=== PATIENT | male | born 1955 | race African-American/Black ===

== ENCOUNTER 2017-06-03 13:34 | Inpatient (IN) | payer OTHER ==
[2017-06-03 15:22] VITALS: BMI 26.3
--- NOTE | 2017-06-03 17:19 | HP ---
CIWA Score - CIWA Score Nausea/Vomitin Muscle Tremors: 5 Anxiety: 3 Agitation: 3 Paroxysmal Sweats: 3 Orientation: 0-Oriented Tacttile Disturbances: 0-None Auditory Disturbances: 0-None Visual Disturbances: 0-None Headache: 0-None Present CIWA-Ar Total Score: 17 Admission ROS BHS - HPI Chief Complaint: "I need help for my Alcohol use, I need to overcome that." Patient is here to Detox from Alcohol. Allergies/Adverse Reactions: Allergies Allergy/AdvReac Type Severity Reaction Status Date / Time pork derived (porcine) Allergy Severe Verified 06/03/17 16:45 No Known Drug Allergies Allergy Verified 06/03/17 16:45 History of Present Illness: Patient 61 YO male here to Detox from Alcohol. This is patient's first Detox admission at [facility]. Patient had a detox admission at [facility] in 2016. Longest Period of sobriety: approx. 1 year (1992). Exam Limitations: No Limitations - Ebola screening Have you traveled outside of the country in the last 21 days: No (N) Have you had contact with anyone from an Ebola affected area: No Have you been sick,other than usual withdrawal symptoms: No Do you have a fever: No - Review of Systems Constitutional: Chills, Diaphoresis, Fever, Loss of Appetite, Malaise, Night Sweats, Changes in sleep, Unintentional Wgt. Loss (Lost approx. 15 lbs. over last Six months.) EENT: reports: Tearing, Nose Congestion, Sinus Pressure Respiratory: reports: Shortness of Breath, Productive cough Cardiac: reports: No Symptoms Reported GI: reports: Nausea, Poor Appetite, Vomiting : reports: No Symptoms Reported Musculoskeletal: reports: No Symptoms Reported Integumentary: reports: No Symptoms Reported Neuro: reports: Tremors Endocrine: reports: No Symptoms Reported Hematology: reports: No Symptoms Reported Psychiatric: reports: Judgement Intact, Mood/Affect Appropiate, Orientated x3, Anxious Other Systems: Reviewed and Negative Patient History - Patient Medical History Hx Anemia: No Hx Asthma: No Hx Chronic Obstructive Pulmonary Disease (COPD): No Hx Cancer: No Hx Cardiac Disorders: No Hx Congestive Heart Failure: No Hx Hypertension: Yes (on meds.) Hx Hypercholesterolemia: Yes (On med.) Hx Pacemaker: No HX Cerebrovascular Accident: No Hx Seizures: No Hx Dementia: No Hx Diabetes: No Hx Gastrointestinal Disorders: No Hx Liver Disease: No Hx Genitourinary Disorders: No Hx Sexually Transmitted Disorders: No Hx Renal Disease (ESRD): No Hx Thyroid Disease: No Hx Human Immunodeficiency Virus (HIV): No (Last Tested: approx. 1 year ago.) Hx Hepatitis C: No (Negative History.) Hx Depression: No Hx Suicide Attempt: No (PATIENT DENIES CURRENT SI / HI.) Hx Bipolar Disorder: No Hx Schizophrenia: No Other Medical History: DENIES. - Patient Surgical History Past Surgical History: Yes Hx Orthopedic Surgery: Yes (Right ankle sx, Louis Placed after.) Other Surgical History: Left eye prothesis Anesthesia Reaction: No - PPD History Documented Results: Positive w/o proof (Completed Course of Antibiotic Treatment , 1988.) Implanted On Prior R Admission?: No PPD to be Administered?: No - Reproductive History Patient is a Female of Child Bearing Age (11 -55 yrs old): No (PATIRNT IS MALE.) - Smoking Cessation Smoking history: Current every day smoker Have you smoked in the past 12 months: Yes Aproximately how many cigarettes per day: 7 Cigars Per Day: 0 Hx Chewing Tobacco Use: No Initiated information on smoking cessation: Yes 'Breaking Loose' booklet given: 06/03/17 (GIVEN TO PATIENT.) - Substance & Tx. History Hx Alcohol Use: Yes Hx Substance Use: Yes Substance Use Type: Alcohol Hx Substance Use Treatment: Yes (Detox at [facility], 2016.) - Substances Abused Alcohol Route: Oral Frequency: Daily Amount used: 1 and 1/2 pints vodka Age of first use: 17 Date of Last Use: 06/03/17 Family Disease History - Family Disease History Family History: Denies (Patient Declines to Answer.) Admission Physical Exam S - Vital Signs Vital Signs: Vital Signs - 24 hr 06/03/17 15:17 Pulse Rate 86 Respiratory 16 Rate Blood Pressure 132/76 - Physical General Appearance: Yes: No Apparent Distress, Nourished, Appropriately Dressed , Irritable, Sweating, Anxious HEENTM: Yes: Hearing grossly Normal, Normocephalic, Normal Voice, CANDE, Pharynx Normal, Other (Artificial Left Eye.) Respiratory: Yes: Chest Non-Tender, Lungs Clear, No Respiratory Distress, No Accessory Muscle Use Neck: Yes: No masses,lesions,Nodules, Supple, Trachea in good position Breast: Yes: Breast Exam Deferred Cardiology: Yes: Regular Rhythm, Regular Rate, S1, S2 Abdominal: Yes: Normal Bowel Sounds, Non Tender, Soft, Protuberent Genitourinary: Yes: Within Normal Limits Back: Yes: Normal Inspection Musculoskeletal: Yes: full range of Motion, Gait Steady Extremities: Yes: Normal Capillary Refill, Normal Range of Motion, Non-Tender, Tremors Neurological: Yes: Fully Oriented, Alert, Normal Mood/Affect, Normal Response Integumentary: Yes: Normal Color, Warm, Diaphoresis Lymphatic: Yes: Within Normal Limits - Diagnostic (1) Alcohol dependence with uncomplicated withdrawal Current Visit: Yes Status: Acute (2) Nicotine dependence Current Visit: Yes Status: Chronic Qualifiers: Nicotine product type: cigarettes Substance use status: uncomplicated Qualified Code(s): F17.210 - Nicotine dependence, cigarettes, uncomplicated (3) Hypertension Current Visit: Yes Status: Acute Qualifiers: Hypertension type: essential hypertension Qualified Code(s): I10 - Essential (primary) hypertension (4) Hypercholesterolemia Current Visit: Yes Status: Chronic (5) Presence of artificial left eye Current Visit: Yes Status: Chronic Cleared for Admission S - Detox or Rehab [facility] Level of Care: Medically Managed Detox Regimen/Protocol: Librium S Breath Alcohol Content Breath Alcohol Content: 0.224 Urine Drug Screen - Results Drug Screen Negative: Yes
[2017-06-03] MEDS ORDERED: IBUPROFEN 400 MG TABLET (FP) PO PRN (17:56)
[2017-06-03] MEDS ORDERED: ACETAMINOPHEN 325 MG TABLET (FP) PO PRN (17:56)
[2017-06-03] MEDS ORDERED: LOPERAMIDE HCL 2 MG CAPSULE PO PRN (17:56)
[2017-06-03] MEDS ORDERED: chlordiazePOXIDE HCL 25 MG CAPSULE PO PRN (17:56)
[2017-06-03] MEDS ORDERED: MAGNESIUM HYDROX 2400MG/30ML ORAL SUSPENSION 30 ML CUP PO PRN (17:56)
[2017-06-03] MEDS ORDERED: MAG HYDROX/AL HYDROX/SIMETH 30 ML UNIT-DOSE CUP PO PRN (17:56)
[2017-06-03] MEDS ORDERED: MAGNESIUM CITRATE 300 ML BOTTLE PO PRN (17:56)
[2017-06-03] MEDS ORDERED: MENTHOL/PHENOL 1 EACH UD MM PRN (17:56)
[2017-06-03] MEDS ORDERED: guaiFENesin/D-METHORPHAN HB 10 ML UNIT-DOSE CUPS PO PRN (17:56)
[2017-06-03] MEDS ORDERED: P-EPHED 60MG/TRIPROLIDI 2.5MG TABLET PO PRN (17:56)
[2017-06-03] MEDS ORDERED: NICOTINE POLACRILEX 2 MG GUM BC PRN (17:56)
[2017-06-03] MEDS ORDERED: chlordiazePOXIDE HCL 25 MG CAPSULE PO ONE (18:30)
[2017-06-03] MEDS: amLODIPine BESYLATE 5 MG TABLET (FP) PO SCH (21:04)
[2017-06-03] MEDS: NICOTINE 14 MG/24 HOURS TOPICAL PATCH TD SCH (21:04)
[2017-06-03] MEDS: THIAMINE HCL 100 MG TABLET (FP) PO SCH (21:48)
[2017-06-03] MEDS: ATORVASTATIN CA 10 MG TABLET (FP) PO SCH (21:49)
[2017-06-03] MEDS: chlordiazePOXIDE HCL 25 MG CAPSULE PO SCH (22:07)
[2017-06-03 23:03] LABS: URINE APPEARANCE SLCLOUDY; URINE BILIRUBIN NEGATIVE (NEGATIVE); URINE BLOOD NEGATIVE (NEGATIVE); URINE COLOR DKYELLOW; URINE GLUCOSE (UA) NEGATIVE (NEGATIVE); URINE KETONE NEGATIVE (NEGATIVE); URINE LEUK ESTERASE TRACE (NEGATIVE); URINE NITRITE NEGATIVE (NEGATIVE); URINE UROBILINOGEN 4.0 E.U/dl mg/dL (0.2-1.0)
[2017-06-03 23:04] LABS: URINE PROTEIN 2+ (NEGATIVE)
[2017-06-03 23:05] LABS: EPI CELLS RARE /HPF (FEW); URINE HYALINE CAST 4 /lpf; URINE MUCUS RARE
[2017-06-04] MEDS: chlordiazePOXIDE HCL 25 MG CAPSULE PO SCH ×4 (06:08→22:33)
[2017-06-04 10:26] LABS: HEMATOCRIT 25.2 % (35.4-49); HEMOGLOBIN 7.6 GM/dL (11.7-16.9); MCHC 30.2 g/dl (32.0-35.9); MEAN CELL VOLUME 69.5 fl (80-96); MEAN PLT VOLUME 8.7 fl (7.5-11.1); PLATELET COUNT 230 K/MM3 (134-434); RBC 3.63 M/mm3 (4.00-5.60); RDW 23.3 % (11.9-15.9); WHITE BLOOD COUNT 4.6 K/mm3 (4.0-10.0)
[2017-06-04 10:41] LABS: CHLORIDE 100 mmol/L (98-107); POTASSIUM 3.6 mmol/L (3.5-5.1); SODIUM 139 mmol/L (136-145)
[2017-06-04] MEDS: HYDROCHLOROTHIAZIDE 25 MG TABLET (FP) PO SCH (10:45)
[2017-06-04] MEDS: ASPIRIN 81 MG CHEWABLE TABLETS PO SCH (10:45)
[2017-06-04] MEDS: PRENATAL VITAMINS W/ FOLIC ACID TABLET (FP) PO SCH (10:45)
[2017-06-04] MEDS: amLODIPine BESYLATE 5 MG TABLET (FP) PO SCH (10:45)
[2017-06-04] MEDS: NICOTINE 14 MG/24 HOURS TOPICAL PATCH TD SCH (10:46)
[2017-06-04 10:49] LABS: ALBUMIN 3.3 g/dl (3.4-5.0); ALK PHOS 217 U/L (45-117); ANION GAP 11 (8-16); BILIRUBIN,TOTAL 0.6 mg/dL (0.2-1.0); BLOOD UREA NITROGEN 14 mg/dL (7-18); CALCIUM 8.8 mg/dL (8.5-10.1); CO2 28 mmol/L (21-32); CREATININE 0.8 mg/dL (0.7-1.3); GLUCOSE,RANDOM 131 mg/dL (74-106); SGOT/AST 164 U/L (15-37); SGPT/ALT 49 U/L (12-78); TOT PROT 7.9 g/dl (6.4-8.2)
[2017-06-04] MEDS: METHYL SALICYLATE/MENTHOL OINT 30 GM TUBE TP SCH ×2 (14:14→22:33)
--- NOTE | 2017-06-04 18:17 | PN ---
[facility] CIWA - CIWA Score Nausea/Vomitin-No Nausea/No Vomiting Muscle Tremors: 5 Anxiety: 4-Mod. Anxious/Guarded Agitation: 2 Paroxysmal Sweats: 3 Orientation: 0-Oriented Tacttile Disturbances: 3-Moderate Itch/Numb/Burn Auditory Disturbances: 0-None Visual Disturbances: 0-None Headache: 0-None Present CIWA-Ar Total Score: 17 BHS Progress Note (SOAP) Subjective: Tremors, Body Aches, Sweating. Objective: PATIENT A & O X 3, OBSERVED AMBULATING ON UNIT. NO ACUTE DISTRESS. PATIENT DENIES CHEST PAIN. 06/04/17 18:12 Vital Signs Temperature 97.9 F 06/04/17 18:09 Pulse Rate 84 06/04/17 18:09 Respiratory Rate 16 06/04/17 18:09 Blood Pressure 148/87 06/04/17 18:09 O2 Sat by Pulse Oximetry (%) Laboratory Tests 06/03/17 06/04/17 06/04/17 22:50 08:00 08:00 WBC 4.6 RBC 3.63 L Hgb 7.6 L Hct 25.2 L MCV 69.5 L MCH 21.0 L MCHC 30.2 L RDW 23.3 H Plt Count 230 MPV 8.7 Sodium 139 Potassium 3.6 Chloride 100 Carbon Dioxide 28 Anion Gap 11 BUN 14 Creatinine 0.8 Creat Clearance w eGFR > 60 Random Glucose 131 H Calcium 8.8 Total Bilirubin 0.6 AST 164 H ALT 49 Alkaline Phosphatase 217 H Total Protein 7.9 Albumin 3.3 L Urine Color Dkyellow Urine Appearance Slcloudy Urine pH 5.0 Ur Specific [place] 1.021 Urine Protein 2+ H Urine Glucose (UA) Negative Urine Ketones Negative Urine Blood Negative Urine Nitrite Negative Urine Bilirubin Negative Urine Urobilinogen 4.0 e.u/dl Ur Leukocyte Esterase Trace Urine WBC (Auto) 11 Urine RBC (Auto) 2 Ur Epithelial Cells Rare Hyaline Casts 4 Urine Mucus Rare RPR Titer 06/04/17 08:00 WBC RBC Hgb Hct MCV MCH MCHC RDW Plt Count MPV Sodium Potassium Chloride Carbon Dioxide Anion Gap BUN Creatinine Creat Clearance w eGFR Random Glucose Calcium Total Bilirubin AST ALT Alkaline Phosphatase Total Protein Albumin Urine Color Urine Appearance Urine pH Ur Specific [place] Urine Protein Urine Glucose (UA) Urine Ketones Urine Blood Urine Nitrite Urine Bilirubin Urine Urobilinogen Ur Leukocyte Esterase Urine WBC (Auto) Urine RBC (Auto) Ur Epithelial Cells Hyaline Casts Urine Mucus RPR Titer Nonreactive LABS NOTED. Assessment: 06/04/17 18:17 WITHDRAWAL SYMPTOMS. ANEMIA. HTN. 06/04/17 18:20 Plan: CONTINUE DETOX. REPEAT CBC, ALK. PHOS., AST, AND UA ON 06/06/2017 FOR ADMISSION ABNORMALITIES. BGM ACBK FOR ELEVATED ADMISSION RANDOM GLUCOSE LEVEL. INCREASE DAILY AMLODIPINE DOSE 10 10 MG PO DAILY FOR ELEVATED BP. FEOSOL, 325 MG TIDWM. INCREASE DAILY PO FLUID INTAKE.
[2017-06-04] MEDS ORDERED: amLODIPine BESYLATE 5 MG TABLET (FP) PO ONE (18:18)
[2017-06-04] MEDS: FERROUS SO4 325 MG TABLET (FP) PO SCH (18:35)
[2017-06-04] MEDS: ATORVASTATIN CA 10 MG TABLET (FP) PO SCH (22:33)
[2017-06-04] MEDS: THIAMINE HCL 100 MG TABLET (FP) PO SCH (22:33)
[2017-06-05] MEDS: chlordiazePOXIDE HCL 25 MG CAPSULE PO SCH ×3 (05:50→17:28)
[2017-06-05] MEDS: FERROUS SO4 325 MG TABLET (FP) PO SCH ×3 (07:23→17:29)
[2017-06-05] MEDS ORDERED: amLODIPine BESYLATE 10 MG TABLET (FP) PO SCH (10:00)
[2017-06-05 10:06] LABS: URINE APPEARANCE CLEAR; URINE BILIRUBIN NEGATIVE (NEGATIVE); URINE BLOOD NEGATIVE (NEGATIVE); URINE COLOR DKYELLOW; URINE GLUCOSE (UA) NEGATIVE (NEGATIVE); URINE KETONE TRACE (NEGATIVE); URINE LEUK ESTERASE TRACE (NEGATIVE); URINE NITRITE NEGATIVE (NEGATIVE); URINE UROBILINOGEN 4.0 E.U/dl mg/dL (0.2-1.0)
[2017-06-05 10:09] LABS: URINE PROTEIN 2+ (NEGATIVE)
[2017-06-05 10:11] LABS: EPI CELLS RARE /HPF (FEW); URINE HYALINE CAST 12 /lpf; URINE MUCUS RARE
[2017-06-05] MEDS: PRENATAL VITAMINS W/ FOLIC ACID TABLET (FP) PO SCH (11:01)
[2017-06-05] MEDS: ASPIRIN 81 MG CHEWABLE TABLETS PO SCH (11:02)
[2017-06-05] MEDS: METHYL SALICYLATE/MENTHOL OINT 30 GM TUBE TP SCH ×2 (11:02→22:31)
[2017-06-05] MEDS: HYDROCHLOROTHIAZIDE 25 MG TABLET (FP) PO SCH (11:02)
[2017-06-05] MEDS: NICOTINE 14 MG/24 HOURS TOPICAL PATCH TD SCH (11:03)
--- NOTE | 2017-06-05 16:59 | PN ---
S CIWA - CIWA Score Nausea/Vomitin Muscle Tremors: 3 Anxiety: 3 Agitation: 3 Paroxysmal Sweats: 3 Orientation: 0-Oriented Tacttile Disturbances: 1-Very Mild Itch/Numbness Auditory Disturbances: 0-None Visual Disturbances: 0-None Headache: 2-Mild CIWA-Ar Total Score: 18 S Progress Note (SOAP) Subjective: Tremor, sweating, headache Objective: 06/05/17 16:56 Last Vital Signs Temp Pulse Resp BP Pulse Ox 96.8 F L 99 H 18 134/86 06/05/17 14:26 06/05/17 14:26 06/05/17 14:26 06/05/17 14:26 Laboratory Tests 06/03/17 06/04/17 06/04/17 22:50 08:00 08:00 WBC 4.6 RBC 3.63 L Hgb 7.6 L Hct 25.2 L MCV 69.5 L MCH 21.0 L MCHC 30.2 L RDW 23.3 H Plt Count 230 MPV 8.7 Sodium 139 Potassium 3.6 Chloride 100 Carbon Dioxide 28 Anion Gap 11 BUN 14 Creatinine 0.8 Creat Clearance w eGFR > 60 POC Glucometer Random Glucose 131 H Calcium 8.8 Total Bilirubin 0.6 AST 164 H ALT 49 Alkaline Phosphatase 217 H Total Protein 7.9 Albumin 3.3 L Urine Color Dkyellow Urine Appearance Slcloudy Urine pH 5.0 Ur Specific [place] 1.021 Urine Protein 2+ H Urine Glucose (UA) Negative Urine Ketones Negative Urine Blood Negative Urine Nitrite Negative Urine Bilirubin Negative Urine Urobilinogen 4.0 e.u/dl Ur Leukocyte Esterase Trace Urine WBC (Auto) 11 Urine RBC (Auto) 2 Ur Epithelial Cells Rare Hyaline Casts 4 Urine Mucus Rare RPR Titer 06/04/17 06/05/17 06/05/17 08:00 07:20 09:00 WBC RBC Hgb Hct MCV MCH MCHC RDW Plt Count MPV Sodium Potassium Chloride Carbon Dioxide Anion Gap BUN Creatinine Creat Clearance w eGFR POC Glucometer 205 Random Glucose Calcium Total Bilirubin AST ALT Alkaline Phosphatase Total Protein Albumin Urine Color Dkyellow Urine Appearance Clear Urine pH 7.0 D Ur Specific [place] 1.025 Urine Protein 2+ H Urine Glucose (UA) Negative Urine Ketones Trace H Urine Blood Negative Urine Nitrite Negative Urine Bilirubin Negative Urine Urobilinogen 4.0 e.u/dl Ur Leukocyte Esterase Trace Urine WBC (Auto) 7 Urine RBC (Auto) 2 Ur Epithelial Cells Rare Hyaline Casts 12 Urine Mucus Rare RPR Titer Nonreactive Labs noted Assessment: 06/05/17 16:57 Withdrawal symptoms Noted with anemia Plan: Continue detox Pmhx of anemia: continue iron supplement, monitor h/h, will need blood transfusion if hgb <7; follow up with your PCP for management
--- NOTE | 2017-06-05 20:38 | EKG ---
Test Reason : Blood Pressure : / mmHG Vent. Rate : 080 BPM Atrial Rate : 080 BPM P-R Int : 154 ms QRS Dur : 082 ms QT Int : 422 ms P-R-T Axes : 064 032 042 degrees QTc Int : 486 ms NORMAL SINUS RHYTHM PROLONGED QT ABNORMAL ECG NO PREVIOUS ECGS AVAILABLE Confirmed by DARLENE CORDERO MD ([id number]) on 06/05/2017 8:38:11 PM Referred By: Confirmed By:DARLENE CORDERO MD
[2017-06-05] MEDS: THIAMINE HCL 100 MG TABLET (FP) PO SCH (22:30)
[2017-06-05] MEDS: ATORVASTATIN CA 10 MG TABLET (FP) PO SCH (22:31)
[2017-06-05] MEDS: chlordiazePOXIDE 5 MG CAPSULE PO SCH (22:31)
[2017-06-06] MEDS: chlordiazePOXIDE 5 MG CAPSULE PO SCH (05:36)
[2017-06-06] MEDS: FERROUS SO4 325 MG TABLET (FP) PO SCH (07:46)
[2017-06-06 10:17] VITALS: BP 139/81; PULSE 100; TEMP 97.3
--- NOTE | 2017-06-06 11:08 | PN ---
[facility] Progress Note (SOAP) Subjective: PT DECLINED TO CONTINUE WITH DETOX STATING " I JUST WANNA LEAVE, I FEEL CONFINED HERE". ALL EFFORTS BY STAFF TO ENCOURAGE PATIENT TO STAY IN TREATMENT WAS UNSUCCESSFUL. PT REPORTS HE HAS A PRIMARY CARE PROVIDER DR DINORAH ROSALES AT [facility] AND HE CURRENTLY HAS HIS OWN MEDS. ALERT O X 3. Objective: 06/06/17 11:07 Vital Signs Temperature 97.3 F L 06/06/17 10:16 Pulse Rate 100 H 06/06/17 10:16 Respiratory Rate 16 06/06/17 10:16 Blood Pressure 139/81 06/06/17 10:16 O2 Sat by Pulse Oximetry (%) Laboratory Last Values WBC 4.6 K/mm3 (4.0-10.0) 06/04/17 08:00 RBC 3.63 M/mm3 (4.00-5.60) L 06/04/17 08:00 Hgb 7.6 GM/dL (11.7-16.9) L 06/04/17 08:00 Hct 25.2 % (35.4-49) L 06/04/17 08:00 MCV 69.5 fl (80-96) L 06/04/17 08:00 MCH 21.0 pg (25.7-33.7) L 06/04/17 08:00 MCHC 30.2 g/dl (32.0-35.9) L 06/04/17 08:00 RDW 23.3 % (11.9-15.9) H 06/04/17 08:00 Plt Count 230 K/MM3 (134-434) 06/04/17 08:00 MPV 8.7 fl (7.5-11.1) 06/04/17 08:00 Sodium 139 mmol/L (136-145) 06/04/17 08:00 Potassium 3.6 mmol/L (3.5-5.1) 06/04/17 08:00 Chloride 100 mmol/L (98-107) 06/04/17 08:00 Carbon Dioxide 28 mmol/L (21-32) 06/04/17 08:00 Anion Gap 11 (8-16) 06/04/17 08:00 BUN 14 mg/dL (7-18) 06/04/17 08:00 Creatinine 0.8 mg/dL (0.7-1.3) 06/04/17 08:00 Creat Clearance w eGFR > 60 (>60) 06/04/17 08:00 POC Glucometer 157 UNITS (80-120) 06/06/17 05:34 Random Glucose 131 mg/dL (74-106) H 06/04/17 08:00 Calcium 8.8 mg/dL (8.5-10.1) 06/04/17 08:00 Total Bilirubin 0.6 mg/dL (0.2-1.0) 06/04/17 08:00 AST 164 U/L (15-37) H 06/04/17 08:00 ALT 49 U/L (12-78) 06/04/17 08:00 Alkaline Phosphatase 217 U/L (45-117) H 06/04/17 08:00 Total Protein 7.9 g/dl (6.4-8.2) 06/04/17 08:00 Albumin 3.3 g/dl (3.4-5.0) L 06/04/17 08:00 Urine Color Dkyellow 06/05/17 09:00 Urine Appearance Clear 06/05/17 09:00 Urine pH 7.0 (5.0-8.0) D 06/05/17 09:00 Ur Specific [place] 1.025 (1.001-1.035) 06/05/17 09:00 Urine Protein 2+ (NEGATIVE) H 06/05/17 09:00 Urine Glucose (UA) Negative (NEGATIVE) 06/05/17 09:00 Urine Ketones Trace (NEGATIVE) H 06/05/17 09:00 Urine Blood Negative (NEGATIVE) 06/05/17 09:00 Urine Nitrite Negative (NEGATIVE) 06/05/17 09:00 Urine Bilirubin Negative (NEGATIVE) 06/05/17 09:00 Urine Urobilinogen 4.0 e.u/dl mg/dL (0.2-1.0) 06/05/17 09:00 Ur Leukocyte Esterase Trace (NEGATIVE) 06/05/17 09:00 Urine WBC (Auto) 7 /hpf (3-5) 06/05/17 09:00 Urine RBC (Auto) 2 /hpf (0-3) 06/05/17 09:00 Ur Epithelial Cells Rare /HPF (FEW) 06/05/17 09:00 Hyaline Casts 12 /lpf 06/05/17 09:00 Urine Mucus Rare 06/05/17 09:00 RPR Titer Nonreactive (NONREACTIVE) 06/04/17 08:00 Assessment: 06/06/17 11:08 NAD. Plan: PT SIGNED OUT AMA
--- NOTE | 2017-06-06 11:13 | DS ---
[facility] Detox Discharge Summary Admission Date: 06/03/17 Discharge Date: 06/06/17 - History Present History: Alcohol Dependence Additional Comments: PT DECLINED TO CONTINUE WITH DETOX. PT SIGNED OUT AMA. PT INSTRUCTED TO FOLLOW UP WITH PRIMARY CARE AT [facility] WITH DR. DINORAH ROSALES. LAB RESULTS GIVEN TO PATIENT IN DISCHARGE PACKET. ALERT O X 3. Pertinent Past History: SEE DX BELOW - Physical Exam Results Vital Signs: Vital Signs Temperature 97.3 F L 06/06/17 10:16 Pulse Rate 100 H 06/06/17 10:16 Respiratory Rate 16 06/06/17 10:16 Blood Pressure 139/81 06/06/17 10:16 O2 Sat by Pulse Oximetry (%) Pertinent Admission Physical Exam Findings: WITHDRAWAL SX Laboratory Last Values WBC 4.6 K/mm3 (4.0-10.0) 06/04/17 08:00 RBC 3.63 M/mm3 (4.00-5.60) L 06/04/17 08:00 Hgb 7.6 GM/dL (11.7-16.9) L 06/04/17 08:00 Hct 25.2 % (35.4-49) L 06/04/17 08:00 MCV 69.5 fl (80-96) L 06/04/17 08:00 MCH 21.0 pg (25.7-33.7) L 06/04/17 08:00 MCHC 30.2 g/dl (32.0-35.9) L 06/04/17 08:00 RDW 23.3 % (11.9-15.9) H 06/04/17 08:00 Plt Count 230 K/MM3 (134-434) 06/04/17 08:00 MPV 8.7 fl (7.5-11.1) 06/04/17 08:00 Sodium 139 mmol/L (136-145) 06/04/17 08:00 Potassium 3.6 mmol/L (3.5-5.1) 06/04/17 08:00 Chloride 100 mmol/L (98-107) 06/04/17 08:00 Carbon Dioxide 28 mmol/L (21-32) 06/04/17 08:00 Anion Gap 11 (8-16) 06/04/17 08:00 BUN 14 mg/dL (7-18) 06/04/17 08:00 Creatinine 0.8 mg/dL (0.7-1.3) 06/04/17 08:00 Creat Clearance w eGFR > 60 (>60) 06/04/17 08:00 POC Glucometer 157 UNITS (80-120) 06/06/17 05:34 Random Glucose 131 mg/dL (74-106) H 06/04/17 08:00 Calcium 8.8 mg/dL (8.5-10.1) 06/04/17 08:00 Total Bilirubin 0.6 mg/dL (0.2-1.0) 06/04/17 08:00 AST 164 U/L (15-37) H 06/04/17 08:00 ALT 49 U/L (12-78) 06/04/17 08:00 Alkaline Phosphatase 217 U/L (45-117) H 06/04/17 08:00 Total Protein 7.9 g/dl (6.4-8.2) 06/04/17 08:00 Albumin 3.3 g/dl (3.4-5.0) L 06/04/17 08:00 Urine Color Dkyellow 06/05/17 09:00 Urine Appearance Clear 06/05/17 09:00 Urine pH 7.0 (5.0-8.0) D 06/05/17 09:00 Ur Specific [place] 1.025 (1.001-1.035) 06/05/17 09:00 Urine Protein 2+ (NEGATIVE) H 06/05/17 09:00 Urine Glucose (UA) Negative (NEGATIVE) 06/05/17 09:00 Urine Ketones Trace (NEGATIVE) H 06/05/17 09:00 Urine Blood Negative (NEGATIVE) 06/05/17 09:00 Urine Nitrite Negative (NEGATIVE) 06/05/17 09:00 Urine Bilirubin Negative (NEGATIVE) 06/05/17 09:00 Urine Urobilinogen 4.0 e.u/dl mg/dL (0.2-1.0) 06/05/17 09:00 Ur Leukocyte Esterase Trace (NEGATIVE) 06/05/17 09:00 Urine WBC (Auto) 7 /hpf (3-5) 06/05/17 09:00 Urine RBC (Auto) 2 /hpf (0-3) 06/05/17 09:00 Ur Epithelial Cells Rare /HPF (FEW) 06/05/17 09:00 Hyaline Casts 12 /lpf 06/05/17 09:00 Urine Mucus Rare 06/05/17 09:00 RPR Titer Nonreactive (NONREACTIVE) 06/04/17 08:00 - Treatment Hospital Course: Discharged Condition Good - Medication Discharge Medications: Ambulatory Orders Amlodipine Besylate [Norvasc -] 5 mg PO DAILY 06/03/17 Aspirin [ASA -] 81 mg PO DAILY 06/03/17 Atorvastatin Ca [Lipitor] 10 mg PO HS 06/03/17 Hydrochlorothiazide [Hctz -] 25 mg PO DAILY 06/03/17 - Diagnosis (1) Alcohol dependence with uncomplicated withdrawal Status: Acute (2) Anemia Status: Acute (3) Hypercholesterolemia Status: Chronic (4) Hypertension Status: Chronic Qualifiers: Hypertension type: essential hypertension Qualified Code(s): I10 - Essential (primary) hypertension (5) Nicotine dependence Status: Acute Qualifiers: Nicotine product type: cigarettes Substance use status: in withdrawal Qualified Code(s): F17.213 - Nicotine dependence, cigarettes, with withdrawal (6) Presence of artificial left eye Status: Chronic - AMA Did Patient Leave Against Medical Advice: Yes (AMA)
[2017-06-06] MEDS ORDERED: chlordiazePOXIDE HCL 10 MG CAPSULE PO SCH (23:00)
== END 2017-06-06 10:25 | disposition left against medical advice (07) | DRG 770 ==
LOC: YASAS 13:34 → Y3N 17:54
PROVIDERS: ADMIT Internal Medicine; ATTEND Internal Medicine
PROC: HZ2ZZZZ Detoxification Services for Substance Abuse Treatment (ICD-10-PCS; principal; 2017-06-03)
DX: F10.230 Alcohol dependence with withdrawal, uncomplicated (principal); F17.213 Nicotine dependence, cigarettes, with withdrawal; I10 Essential (primary) hypertension; E78.00 Pure hypercholesterolemia, unspecified; D64.9 Anemia, unspecified; Z97.0 Presence of artificial eye
CPT/HCPCS: 36415; 80053; 81003; 81015; 82962; 85027; 86593; 93005; 93010

== ENCOUNTER 2019-10-25 11:14 | Inpatient (IN) | payer OTHER ==
--- NOTE | 2019-10-25 11:24 | BHS.RME ---
Substance Use & Tx History - Substance Use History Alcohol Substance amount: 2 pints vodka Frequency of use: Daily Substance route: Oral Date of Last Use: 10/24/19 Nicotine Substance amount: 1-2 ciggs Frequency of use: Daily Substance route: Smoking Date of Last Use: 10/25/19 Physical/Psych/Mental Status - Behavior General Behavior: Increased activity (restlessness, agitation) Eye Contact: Normal - Cooperativeness Cooperativeness: Cooperative - Thinking Thought Processes: Tight, Logical, Goal Directed - Physical Health Problems Is patient presently having any pain?: No Does patient presently have any injuries (include location): No Does patient currently have a fever: No Is patient : No CIWA Nausea/Vomitin-No Nausea/No Vomiting Muscle Tremors: 3 Anxiety: 3 Agitation: 3 Paroxysmal Sweats: 4-Forehead w/Sweat Beads Orientation: 2-Disoriented Date<2 days Tacttile Disturbances: 0-None Auditory Disturbances: 0-None Visual Disturbances: 0-None Headache: 1-Very Mild CIWA-Ar Total Score: 16
--- NOTE | 2019-10-25 12:21 | HP ---
CIWA Score Nausea/Vomitin-No Nausea/No Vomiting Muscle Tremors: 3 Anxiety: 3 Agitation: 3 Paroxysmal Sweats: 4-Forehead w/Sweat Beads Orientation: 2-Disoriented Date<2 days Tacttile Disturbances: 0-None Auditory Disturbances: 0-None Visual Disturbances: 0-None Headache: 1-Very Mild CIWA-Ar Total Score: 16 - Admission Criteria OASAS Guidelines: Admission for Medically Managed Detox: Requires at least one of the followin. CIWA greater than 12 2. Seizures within the past 24 hours 3. Delirium tremens within the past 24 hours 4. Hallucinations within the past 24 hours 5. Acute intervention needed for co occurring medical disorder 6. Acute intervention needed for co occurring psychiatric disorder 7. Severe withdrawal that cannot be handled at a lower level of care (continued vomiting, continued diarrhea, abnormal vital signs) requiring intravenous medication and/or fluids 8. Admitting History and Physical - Admission Chief Complaint: " I need to stop drinking to save my life." History of Present Illness: 64 year old male with history of alcohol dependence with withdrawal, nicotine dependence. He was last here in [facility] on 06/03-06/06/17 and completed detox. However, he relapsed 1 year ago. Alcohol: 2 pints vodka daily, started at age 18 and last used 10/24/19 in the evening, last blackout only 3 days ago, and endorses need for eye president [employer] daily. Nicotine: 1 pack q 2 weeks, approximate 1-2 ciggs daily, started at age 20. PMH: HTN, HLD, L eye artificial Psurg: Right Ankle louis placed Psych: None' Lives in a studio apartment alone in [place], has no legal issues pending. JAUN=0.213 CIWA=16 Patient meets criteria for detox as he has multiple co-morbid disease and recent blackout just 3 days ago. History Source: Patient Limitations to Obtaining History: No Limitations - Past Medical History Cardiovascular: Yes: HTN, Hyperlipdemia - Past Surgical History Additional Past Surgical History: R ankle fracture and louis implanted. - Smoking History Smoking history: Current every day smoker Have you smoked in the past 12 months: Yes Aproximately how many cigarettes per day: 7 - Alcohol/Substance Use Hx Alcohol Use: Yes Number of Drinks Daily: 20 - Social History Usual Living Arrangement: Yes: Other Do you think of yourself as: Straight/Heterosexual ADL: Independent Occupation: unemployed History of Recent Travel: No Admission ROS [facility] - HPI Allergies/Adverse Reactions: Allergies Allergy/AdvReac Type Severity Reaction Status Date / Time pork derived (porcine) Allergy Severe Verified 06/03/17 16:45 No Known Drug Allergies Allergy Verified 06/03/17 16:45 Exam Limitations: No Limitations - Ebola screening Have you traveled outside of the country in the last 21 days: No Have you had contact with anyone from an Ebola affected area: No Have you been sick,other than usual withdrawal symptoms: No Do you have a fever: No - Review of Systems Constitutional: Chills, Unintentional Wgt. Loss EENT: reports: No Symptoms Reported Respiratory: reports: No Symptoms reported Cardiac: reports: No Symptoms Reported GI: reports: No Symptoms Reported : reports: No Symptoms Reported Musculoskeletal: reports: No Symptoms Reported Integumentary: reports: No Symptoms Reported Neuro: reports: No Symptoms reported Endocrine: reports: No Symptoms Reported Hematology: reports: No Symptoms Reported Psychiatric: reports: Judgement Intact, Orientated x3, Agitated, Anxious Other Systems: Reviewed and Negative Patient History - Patient Medical History Hx Anemia: No Hx Asthma: No Hx Chronic Obstructive Pulmonary Disease (COPD): No Hx Cancer: No Hx Cardiac Disorders: No Hx Congestive Heart Failure: No Hx Hypertension: Yes (on meds.) Hx Hypercholesterolemia: Yes (On med.) Hx Pacemaker: No HX Cerebrovascular Accident: No Hx Seizures: No Hx Dementia: No Hx Diabetes: No Hx Gastrointestinal Disorders: No Hx Liver Disease: No Hx Genitourinary Disorders: No Hx Sexually Transmitted Disorders: No Hx Renal Disease (ESRD): No Hx Thyroid Disease: No Hx Human Immunodeficiency Virus (HIV): No (Last Tested: approx. 1 year ago.) Hx Hepatitis C: No (Negative History.) Hx Depression: No Hx Suicide Attempt: No (PATIENT DENIES CURRENT SI / HI.) Hx Bipolar Disorder: No Hx Schizophrenia: No - Patient Surgical History Past Surgical History: Yes Hx Orthopedic Surgery: Yes (Right ankle sx, Louis Placed after.) Other Surgical History: Left eye prothesis Anesthesia Reaction: No - PPD History Previous Implant?: Yes Documented Results: Negative w/o proof Implanted On Prior [facility] Admission?: No PPD to be Administered?: Yes - Smoking Cessation Smoking history: Current every day smoker Have you smoked in the past 12 months: Yes Aproximately how many cigarettes per day: 7 Cigars Per Day: 0 Hx Chewing Tobacco Use: No Initiated information on smoking cessation: Yes 'Breaking Loose' booklet given: 10/25/19 - Substances abused Alcohol Substance route: Oral Frequency: Daily Amount used: 2 pints vodka Age of first use: 18 Date of last use: 10/24/19 Admission Physical Exam [facility] - Physical General Appearance: Yes: Alcohol on Breath, Thin, Tremorous, Irritable, Anxious HEENTM: Yes: EOMI, Hearing grossly Normal, Normal ENT Inspection, Normocephalic, Normal Voice, CANDE, Pharynx Normal, Tm's normal Respiratory: Yes: Chest Non-Tender, Lungs Clear, Normal Breath Sounds, No Respiratory Distress, No Accessory Muscle Use Neck: Yes: No masses,lesions,Nodules, Supple, Trachea in good position Breast: Yes: Within Normal Limits Cardiology: Yes: Regular Rhythm, Regular Rate, S1, S2 Abdominal: Yes: Normal Bowel Sounds, Non Tender, Flat, Soft Genitourinary: Yes: Within Normal Limits Back: Yes: Normal Inspection Musculoskeletal: Yes: full range of Motion, Gait Steady, Pelvis Stable Extremities: Yes: Normal Capillary Refill, Normal Inspection, Normal Range of Motion, Non-Tender Neurological: Yes: residential lawn specialist II-XII NML intact, Fully Oriented, Alert, Motor Strength 5/5, Normal Mood/Affect, Normal Response Integumentary: Yes: Normal Color, Dry, Warm Lymphatic: Yes: Within Normal Limits - Diagnostic (1) Alcohol dependence with uncomplicated withdrawal Current Visit: Yes Status: Acute (2) Nicotine dependence Current Visit: Yes Status: Acute Qualifiers: Nicotine product type: cigarettes Substance use status: in withdrawal Qualified Code(s): F17.213 - Nicotine dependence, cigarettes, with withdrawal (3) Hypercholesterolemia Current Visit: Yes Status: Chronic (4) Hypertension Current Visit: Yes Status: Chronic Qualifiers: Hypertension type: essential hypertension Qualified Code(s): I10 - Essentia l (primary) hypertension (5) Presence of artificial left eye Current Visit: Yes Status: Chronic Cleared for Admission [facility] - Detox or Rehab [facility] Level of Care: Medically Managed Detox Regimen/Protocol: Librium Claeared for Rehab Admission: No Screened but not Admitted - Documentation of Visit Screened but not Admitted: No Breathalyzer - Breathalyzer Breathalyzer: 0.213 Urine Drug Screen - Test Device Lot number: [id number] Expiration date: 07/03/21 - Control Is test valid?: Yes - Results Drug screen NEGATIVE: Yes Inpatient Rehab Admission - Rehab Decision to Admit Inpatient rehab admission?: No
[2019-10-25] MEDS ORDERED: MAG HYDROX/AL HYDROX/SIMETH 30 ML UNIT-DOSE CUP PO PRN (12:25)
[2019-10-25] MEDS ORDERED: MENTHOL/PHENOL 1 EACH UD MM PRN (12:25)
[2019-10-25] MEDS ORDERED: MAGNESIUM CITRATE 300 ML BOTTLE PO PRN (12:25)
[2019-10-25] MEDS ORDERED: ACETAMINOPHEN 325 MG TABLET (FP) PO PRN ×2 (12:25)
[2019-10-25] MEDS ORDERED: MAGNESIUM HYDROX 2400MG/30ML ORAL SUSPENSION 30 ML CUP PO PRN (12:25)
[2019-10-25] MEDS ORDERED: IBUPROFEN 400 MG TABLET (FP) PO PRN (12:25)
[2019-10-25] MEDS ORDERED: NICOTINE POLACRILEX 2 MG GUM BUC PRN (12:25)
[2019-10-25] MEDS ORDERED: ONDANSETRON *ODT* 4 MG TABLET SL ONE (12:25)
[2019-10-25] MEDS ORDERED: METHOCARBAMOL 500 MG TABLET PO PRN (12:25)
[2019-10-25] MEDS ORDERED: BISMUTH SUBSALICYLATE 262 MG/15 ML BTL PO PRN (12:25)
[2019-10-25] MEDS ORDERED: chlordiazePOXIDE HCL 25 MG CAPSULE PO PRN (12:25)
[2019-10-25 12:54] VITALS: BMI 26.5
[2019-10-25] MEDS ORDERED: hydrOXYzine PAMOATE 25 MG CAPSULE (FP) PO SCH (14:00)
[2019-10-25] MEDS: amLODIPine BESYLATE 5 MG TABLET (FP) PO SCH (14:17)
[2019-10-25] MEDS: chlordiazePOXIDE HCL 25 MG CAPSULE PO SCH ×3 (14:17→22:15)
[2019-10-25] MEDS: ASPIRIN 81 MG CHEWABLE TABLETS PO SCH (14:17)
[2019-10-25] MEDS: HYDROCHLOROTHIAZIDE 25 MG TABLET (FP) PO SCH (14:17)
[2019-10-25] MEDS: NICOTINE 7 MG/24 HOURS TOPICAL PATCH TD SCH (14:19)
[2019-10-25] MEDS: PRENATAL VITAMINS W/ FOLIC ACID TABLET (FP) PO SCH (14:32)
[2019-10-25 18:01] LABS: HEMATOCRIT 24.1 % (35.4-49); HEMOGLOBIN 7.4 GM/dL (11.7-16.9); MCH 25.5 pg (25.7-33.7); MCHC 30.8 g/dl (32.0-35.9); MEAN CELL VOLUME 82.8 fl (80-96); MEAN PLT VOLUME 8.9 fl (7.5-11.1); PLATELET COUNT 219 K/MM3 (134-434); RDW 30.6 % (11.9-15.9); WHITE BLOOD COUNT 3.9 K/mm3 (4.0-10.0)
[2019-10-25 18:19] LABS: BILIRUBIN,TOTAL 0.4 mg/dL (0.2-1); CALCIUM 8.9 mg/dL (8.5-10.1); CREATININE 0.9 mg/dL (0.55-1.3); TOT PROT 7.6 g/dl (6.4-8.2)
[2019-10-25 18:57] LABS: POTASSIUM 3.7 mmol/L (3.5-5.1)
[2019-10-25] MEDS: THIAMINE HCL 100 MG TABLET (FP) PO SCH (22:15)
[2019-10-25] MEDS: ATORVASTATIN CA 10 MG TABLET (FP) PO SCH (22:15)
[2019-10-25] MEDS: MELATONIN 5 MG TABLETS PO SCH (22:15)
[2019-10-25] MEDS: hydrOXYzine PAMOATE 25 MG CAPSULE (FP) PO PRN (22:17)
[2019-10-26] MEDS: chlordiazePOXIDE HCL 25 MG CAPSULE PO SCH ×4 (05:40→22:22)
[2019-10-26] MEDS: hydrOXYzine PAMOATE 25 MG CAPSULE (FP) PO PRN (05:41)
[2019-10-26] MEDS ORDERED: cloNIDine HCL 0.1 MG TABLET PO ONE ×2 (07:07→14:18)
--- NOTE | 2019-10-26 10:13 | PN ---
[facility] CIWA - CIWA Score Nausea/Vomitin-No Nausea/No Vomiting Muscle Tremors: 3 Anxiety: 2 Agitation: 3 Paroxysmal Sweats: 3 Orientation: 0-Oriented Tacttile Disturbances: 0-None Auditory Disturbances: 0-None Visual Disturbances: 0-None Headache: 0-None Present CIWA-Ar Total Score: 11 S Progress Note (SOAP) Subjective: irritable agitation sweats tired Objective: 10/26/19 10:14 Vital Signs Temperature 96.9 F L 10/26/19 08:53 Pulse Rate 96 H 10/26/19 08:53 Respiratory Rate 18 10/26/19 08:53 Blood Pressure 159/94 10/26/19 08:53 O2 Sat by Pulse Oximetry (%) 99 10/26/19 05:30 Laboratory Tests 10/25/19 10/25/19 10/25/19 12:30 12:35 12:35 WBC 3.9 L RBC 2.90 L Hgb 7.4 L Hct 24.1 L MCV 82.8 MCH 25.5 L D MCHC 30.8 L RDW 30.6 H Plt Count 219 MPV 8.9 Sodium 143 Potassium 3.7 Chloride 111 H Carbon Dioxide 26 Anion Gap 6 L BUN 20.0 H Creatinine 0.9 Est GFR (CKD-EPI)AfAm 105.72 Est GFR (CKD-EPI)NonAf 91.22 Random Glucose 157 H Calcium 8.9 Total Bilirubin 0.4 AST 85 H ALT 30 Alkaline Phosphatase 179 H Total Protein 7.6 Albumin 3.0 L Syphilis Serology Non-reactive COVID-19 ([facility]) 10/25/19 13:40 WBC RBC Hgb Hct MCV MCH MCHC RDW Plt Count MPV Sodium Potassium Chloride Carbon Dioxide Anion Gap BUN Creatinine Est GFR (CKD-EPI)AfAm Est GFR (CKD-EPI)NonAf Random Glucose Calcium Total Bilirubin AST ALT Alkaline Phosphatase Total Protein Albumin Syphilis Serology COVID-19 ([facility]) Not detected labs noted elevated BUN, elevated glucose. pt denies having diabetes; will repeat labs but in meantime pt is encouraged to drink water for hydration. [id number] ambulating no acute distress Assessment: 10/26/19 10:16 withdrawals Plan: continue detox increase fluids repeat labs
[2019-10-26] MEDS: NICOTINE 7 MG/24 HOURS TOPICAL PATCH TD SCH (12:12)
[2019-10-26] MEDS: ASPIRIN 81 MG CHEWABLE TABLETS PO SCH (12:13)
[2019-10-26] MEDS: PRENATAL VITAMINS W/ FOLIC ACID TABLET (FP) PO SCH (12:13)
[2019-10-26] MEDS: HYDROCHLOROTHIAZIDE 25 MG TABLET (FP) PO SCH (12:13)
[2019-10-26] MEDS: amLODIPine BESYLATE 5 MG TABLET (FP) PO SCH (12:13)
--- NOTE | 2019-10-26 13:07 | PN ---
[facility] Progress Note Note: pt c/o burning with some purulent discharge noted both eyes. ciproflaxin eye drops and visine ordered for pt. will continue to assess improvement.
[2019-10-26] MEDS ORDERED: TETRAHYDROZOLINE HCL EYE DROPS OU PRN (13:08)
[2019-10-26] MEDS ORDERED: amLODIPine BESYLATE 5 MG TABLET (FP) PO ONE (14:17)
--- NOTE | 2019-10-26 14:30 | PN ---
[facility] Progress Note Note: RN called that pt most recent BP is 174/97 HR 90. outside medication shows pt is on norvasc 10mg. medication ordered. also clonidine 0.1mg bid with parameters also ordered. follow up with BP status.
[2019-10-26] MEDS: CIPROFLOXACIN HCL 0.3% OPHTH 2.5ML BOTTLE OU SCH ×3 (15:31→22:24)
[2019-10-26] MEDS: cloNIDine HCL 0.1 MG TABLET PO SCH (22:21)
[2019-10-26] MEDS: MELATONIN 5 MG TABLETS PO SCH (22:22)
[2019-10-26] MEDS: THIAMINE HCL 100 MG TABLET (FP) PO SCH (22:22)
[2019-10-26] MEDS: ATORVASTATIN CA 10 MG TABLET (FP) PO SCH (22:22)
[2019-10-27] MEDS ORDERED: MASKS NR ONE (05:39)
[2019-10-27] MEDS: chlordiazePOXIDE HCL 25 MG CAPSULE PO SCH ×2 (05:40→11:17)
[2019-10-27] MEDS: CIPROFLOXACIN HCL 0.3% OPHTH 2.5ML BOTTLE OU SCH ×2 (06:04→11:15)
--- NOTE | 2019-10-27 09:57 | PN ---
[facility] CIWA - CIWA Score Nausea/Vomitin-No Nausea/No Vomiting Muscle Tremors: 3 Anxiety: 4-Mod. Anxious/Guarded Agitation: 3 Paroxysmal Sweats: No Perspiration Orientation: 3-Disoriented Date>2 days Tacttile Disturbances: 0-None Auditory Disturbances: 0-None Visual Disturbances: 0-None Headache: 0-None Present CIWA-Ar Total Score: 13 S Progress Note (SOAP) Subjective: Anxious, Restless, Sweating. Objective: Patient A & O X 2 (uncertain about current day / date). Patient observed ambulating on Unit unassisted. 10/27/19 09:46 Vital Signs Temperature 97.3 F L 10/27/19 09:15 Pulse Rate 85 10/27/19 09:15 Respiratory Rate 17 10/27/19 09:15 Blood Pressure 163/96 10/27/19 09:15 O2 Sat by Pulse Oximetry (%) 100 10/27/19 05:30 Laboratory Tests 10/25/19 10/25/19 10/25/19 12:30 12:35 12:35 WBC 3.9 L RBC 2.90 L Hgb 7.4 L Hct 24.1 L MCV 82.8 MCH 25.5 L D MCHC 30.8 L RDW 30.6 H Plt Count 219 MPV 8.9 Sodium 143 Potassium 3.7 Chloride 111 H Carbon Dioxide 26 Anion Gap 6 L BUN 20.0 H Creatinine 0.9 Est GFR (CKD-EPI)AfAm 105.72 Est GFR (CKD-EPI)NonAf 91.22 Random Glucose 157 H Calcium 8.9 Total Bilirubin 0.4 AST 85 H ALT 30 Alkaline Phosphatase 179 H Total Protein 7.6 Albumin 3.0 L Syphilis Serology Non-reactive COVID-19 ([facility]) 10/25/19 13:40 WBC RBC Hgb Hct MCV MCH MCHC RDW Plt Count MPV Sodium Potassium Chloride Carbon Dioxide Anion Gap BUN Creatinine Est GFR (CKD-EPI)AfAm Est GFR (CKD-EPI)NonAf Random Glucose Calcium Total Bilirubin AST ALT Alkaline Phosphatase Total Protein Albumin Syphilis Serology COVID-19 ([facility]) Not detected Lab Results noted. Assessment: 10/27/19 09:47 WITHDRAWAL SYMPTOMS. ANEMIA. HYPERGLYCEMIA. ELEVATED AST LEVEL. ELEVATED ALKALINE PHOSPHATASE LEVEL. HYPERTENSION. 10/27/19 09:48 Plan: Continue Detox. Increase daily oral water intake. Note: Patient reports that he fell in his room earlier in AM. He reports that he fell to floor while trying to get into bed. Apparently, fall was unwitnessed by Unit staff. Patient denies LOC after fall and he denies that he hit his head during fall. He reports that he landed primarily on his left forearm and elbow. At this time, he denies pain at those sites. No swelling, erythema, or wounds visualized at affected sites. Patient has full ROM of Left arm and hand. No tenderness upon palpation of affected sites reported by Patient. Patient A & O X 2 (uncertain about current day / date). Patient observed ambulating on Unit unassisted. [facility] Fall Protocol # 1 Initiated. Patient advised to be taken via ambulance to [facility] ER for further evaluation. However, despite strong encouragement, Patient refuses to be taken to ER (refusal of care form signed by Patient). Repeat CBC and CMC ordered for now due to abnormalities noted on Detox Admission Laboratory assessment, including Anemia and Hyperglycemia. Due to appearance of lethargy and agitation, Ammonia level also ordered. Will continue to monitor.
[2019-10-27] MEDS ORDERED: amLODIPine BESYLATE 10 MG TABLET (FP) PO SCH (10:00)
[2019-10-27] MEDS: NICOTINE 7 MG/24 HOURS TOPICAL PATCH TD SCH (11:16)
[2019-10-27] MEDS: PRENATAL VITAMINS W/ FOLIC ACID TABLET (FP) PO SCH (11:16)
[2019-10-27] MEDS: ASPIRIN 81 MG CHEWABLE TABLETS PO SCH (11:16)
[2019-10-27] MEDS: cloNIDine HCL 0.1 MG TABLET PO SCH (11:16)
[2019-10-27] MEDS: HYDROCHLOROTHIAZIDE 25 MG TABLET (FP) PO SCH (11:16)
[2019-10-27 11:34] VITALS: BP 143/85; PULSE 95; TEMP 97.1
--- NOTE | 2019-10-27 15:51 | DS ---
[facility] Detox Discharge Summary Admission Date: 10/25/19 Discharge Date: 10/27/19 - History Present History: Alcohol Dependence Additional Comments: Despite efforts by RESEARCH TECHNICIAN and by Nursing and Counseling Staff to address Patient's medical needs / concerns, Patient does not wish to remain to complete detox regimen. Risks of leaving Detox Unit against medical advice and prior to completion of Detox Regimen explained to Patient. Due to medical issues, including fall reported earlier in AM and due to various abnormalities (including Anemia and Hyperglycemia) noted Detox admission laboratory assessment, Patient strongly urged to remain on Detox Unit for time being for continued medical evaluation and monitoring. However, Patient still refused to do so, stating "I just want to go home now." Ammonia level, along with repeat CBC and CMP ordered earlier in AM. However, Patient left Detox Unit prior to time in which results available. Results still pending at this time. Patient declined offer of Medication Prescription for home medication at time of Disch arge from Detox, noting that he currently has adequate supplies of all prescribed home medications at home. Remainder of bottle of Ciprofloxacin Eye Drops started for Eye Infection while Patient was admitted on Detox Unit given to Patient take home with him. Patient advised to complete full course of Antibiotic and to follow-up with Primary Care Medical Provider as soon as possible for further evaluation of Eye infection and for abnormalities noted on Detox admission Laboratory assessment. Copies of results of Detox Admission labs given to Patient to take with him. Patient also advised to go immediately to nearest ER should any intolerable withdrawal / detox symptoms develop at any time. Patient verbalized understanding of all information / recommendations presented to him prior to departure from detox unit. Pertinent Past History: Hypertension, Hyperlipidemia, History of Placement of Metal of in Left Ankle, Presence of Artificial Left Eye, Anemia, Hyperglycemia (noted on Detox Admission laboratory assessment). - Physical Exam Results Vital Signs: Vital Signs Temperature 97.1 F L 10/27/19 11:15 Pulse Rate 95 H 10/27/19 11:15 Respiratory Rate 17 10/27/19 11:15 Blood Pressure 143/85 10/27/19 11:15 O2 Sat by Pulse Oximetry (%) 100 10/27/19 05:30 Pertinent Admission Physical Exam Findings: WITHDRAWAL SYMPTOMS. Laboratory Tests 10/25/19 10/25/19 10/25/19 12:30 12:35 12:35 WBC 3.9 L RBC 2.90 L Hgb 7.4 L Hct 24.1 L MCV 82.8 MCH 25.5 L D MCHC 30.8 L RDW 30.6 H Plt Count 219 MPV 8.9 Sodium 143 Potassium 3.7 Chloride 111 H Carbon Dioxide 26 Anion Gap 6 L BUN 20.0 H Creatinine 0.9 Est GFR (CKD-EPI)AfAm 105.72 Est GFR (CKD-EPI)NonAf 91.22 Random Glucose 157 H Calcium 8.9 Total Bilirubin 0.4 AST 85 H ALT 30 Alkaline Phosphatase 179 H Total Protein 7.6 Albumin 3.0 L Syphilis Serology Non-reactive COVID-19 ([facility]) 10/25/19 13:40 WBC RBC Hgb Hct MCV MCH MCHC RDW Plt Count MPV Sodium Potassium Chloride Carbon Dioxide Anion Gap BUN Creatinine Est GFR (CKD-EPI)AfAm Est GFR (CKD-EPI)NonAf Random Glucose Calcium Total Bilirubin AST ALT Alkaline Phosphatase Total Protein Albumin Syphilis Serology COVID-19 ([facility]) Not detected Lab results noted. - Medication Discharge Medications: Ambulatory Orders Amlodipine Besylate [Norvasc -] 5 mg PO DAILY 06/03/17 Aspirin [ASA -] 81 mg PO DAILY 06/03/17 Atorvastatin Ca [Lipitor] 10 mg PO HS 06/03/17 Hydrochlorothiazide [Hctz -] 25 mg PO DAILY 06/03/17 - Diagnosis (1) Alcohol dependence with uncomplicated withdrawal Status: Acute (2) Anemia Status: Acute Qualifiers: Anemia type: unspecified type Qualified Code(s): D64.9 - Anemia, unspecified (3) Nicotine dependence Status: Acute Qualifiers: Nicotine product type: cigarettes Substance use status: in withdrawal Qualified Code(s): F17.213 - Nicotine dependence, cigarettes, with withdrawal (4) Hypercholesterolemia Status: Chronic (5) Hypertension Status: Chronic Qualifiers: Hypertension type: essential hypertension Qualified Code(s): I10 - Essential (primary) hypertension (6) Presence of artificial left eye Status: Chronic - AMA Did Patient Leave Against Medical Advice: Yes (Patient did not wish to remain to complete Detox Regimen.)
[2019-10-27 18:08] LABS: ALBUMIN 2.9 g/dl (3.4-5.0); BILIRUBIN,TOTAL 0.3 mg/dL (0.2-1); CALCIUM 9.7 mg/dL (8.5-10.1); CREATININE 0.9 mg/dL (0.55-1.3); POTASSIUM 3.9 mmol/L (3.5-5.1); TOT PROT 7.6 g/dl (6.4-8.2)
[2019-10-27 18:09] LABS: BASO % 0.8 % (0-2.0); EOS % 1.2 % (0-4.5); HEMATOCRIT 25.1 % (35.4-49); HEMOGLOBIN 7.8 GM/dL (11.7-16.9); MCH 25.2 pg (25.7-33.7); MEAN CELL VOLUME 81.3 fl (80-96); MEAN PLT VOLUME 9.6 fl (7.5-11.1); PLATELET COUNT 210 K/MM3 (134-434); RBC 3.09 M/mm3 (4.00-5.60); RDW 29.2 % (11.9-15.9); WHITE BLOOD COUNT 4.4 K/mm3 (4.0-10.0)
[2019-10-27 18:40] LABS: ANISOCYTOSIS 2+; MACROCYTOSIS 2+; ROULEAU 3+
[2019-10-28] MEDS ORDERED: chlordiazePOXIDE HCL 10 MG CAPSULE PO PRN
[2019-10-28] MEDS ORDERED: chlordiazePOXIDE HCL 10 MG CAPSULE PO SCH (05:00)
[2019-10-29] MEDS ORDERED: chlordiazePOXIDE HCL 10 MG CAPSULE PO SCH (05:00)
[2019-10-30] MEDS ORDERED: chlordiazePOXIDE HCL 10 MG CAPSULE PO ONE (05:00)
== END 2019-10-27 12:09 | disposition left against medical advice (07) | DRG 770 ==
LOC: YASAS 11:14 → Y6N 13:09
PROVIDERS: ADMIT Allergy & Immunology; ATTEND Allergy & Immunology
PROC: HZ2ZZZZ Detoxification Services for Substance Abuse Treatment (ICD-10-PCS; principal; 2019-10-25)
DX: F10.230 Alcohol dependence with withdrawal, uncomplicated (principal); F17.213 Nicotine dependence, cigarettes, with withdrawal; I10 Essential (primary) hypertension; D64.9 Anemia, unspecified; E78.00 Pure hypercholesterolemia, unspecified; R73.9 Hyperglycemia, unspecified; R74.0 Nonspecific elevation of levels of transaminase and lactic acid dehydrogenase [LDH]; Z97.0 Presence of artificial eye; Z91.018 Allergy to other foods
CPT/HCPCS: 36415; 80053; 82140; 85025; 85027; 86780; J0735; U0003